=== PATIENT | male | born 1995 | race Caucasian/White ===

== ENCOUNTER 2016-11-05 10:40 | Emergency (ER) | payer BC, MEDICAID ==
[~2016-11-05] VITALS: Ht 180.3 cm; Wt 104.3 kg
[2016-11-05 10:50] VITALS: BP 137/71
[2016-11-05 11:32] LABS: BASOPHILS # (AUTO) 0.1 K/uL (0.00-0.22); BASOPHILS % (AUTO) 1.6 % (0.0-2.0); EOSINOPHILS # (AUTO) 0.2 K/uL (0-0.4); EOSINOPHILS % (AUTO) 2.2 % (0.0-4.0); HEMATOCRIT 49.4 % (36-52); HEMOGLOBIN 16.5 g/dL (12.0-18.0); LYMPHOCYTES # (AUTO) 1.6 K/uL (2.0-11.5); LYMPHOCYTES % (AUTO) 19.4 % (20.5-51.1); MEAN CORPUSCULAR HEMOGLOBIN 28 pg (27-31); MEAN CORPUSCULAR HGB CONC 33 g/dL (33-37); MEAN CORPUSCULAR VOLUME 84 fL (80-94); MONOCYTES # (AUTO) 1.4 K/uL (0.8-1.0); MONOCYTES % (AUTO) 16.8 % (1.7-9.3); NEUTROPHILS # (AUTO) 5.2 K/uL (1.8-7.7); PLATELET COUNT (AUTO) 218 K/uL (140-450); RED BLOOD CELL COUNT(AUTO) 5.87 MIL/uL (4.20-6.10); RED CELL DISTRIBUTION WIDTH 12.3 % (11.6-13.7); WHITE BLOOD COUNT (AUTO) 8.5 K/uL (4.8-10.8)
--- NOTE | 2016-11-05 14:22 | NUR ---
ER MD DR COSTA EVALUATING PT AT BEDSIDE
--- NOTE | 2016-11-05 14:22 | NUR ---
20/M BIB SISTER C/O L FOOT PAIN X 3 DAYS. DENIES TRAUMA OR ACCIDENT. SKIN IS PINK/WARM/DRY; AAOX4 WITH EVEN AND STEADY GAIT; LUNGS CLEAR BL; HR EVEN AND REGULAR; PT DENIES ANY FEVER, CP, SOB, OR COUGH AT THIS TIME; PATIENT STATES PAIN OF 9/10 AT THIS TIME; PATIENT POSITIONED FOR COMFORT; HOB ELEVATED; BEDRAILS UP X2; BED DOWN. ER MD MADE AWARE OF PT STATUS.
--- NOTE | 2016-11-05 14:22 | NUR ---
PATIENT TO ER BED 7
[2016-11-05 15:21] VITALS: BP 140/87
--- NOTE | 2016-11-05 15:21 | NUR ---
Patient discharged with v/s stable. Written and verbal after care instructions given and explained. Patient alert, oriented and verbalized understanding of instructions. Ambulatory with steady gait. All questions addressed prior to discharge. ID band removed. Patient advised to follow up with PMD. Rx of NAPROXYN given. Patient educated on indication of medication including possible reaction and side effects. Opportunity to ask questions provided and answered.
== END 2016-11-05 15:21 | disposition home or self-care (01) ==
LOC: MED 10:40
DX: M79.672 Pain in left foot (principal); R03.0 Elevated blood-pressure reading, without diagnosis of hypertension
CPT/HCPCS: 36415; 73630; 84550; 85025; 99285

== ENCOUNTER 2019-06-23 00:04 | Emergency (ER) | payer BC ==
[~2019-06-23] VITALS: Ht 182.9 cm; Wt 113.4 kg
[2019-06-23 00:10] VITALS: BP 130/60
--- NOTE | 2019-06-23 00:10 | NUR ---
PT AMBULATED TO BED
--- NOTE | 2019-06-23 00:21 | NUR ---
DR. NICOLAS AT BEDSIDE.
[2019-06-23] MEDS ORDERED: CEPHALEXIN 500 MG CAP PO ONE (00:25)
[2019-06-23] MEDS ORDERED: SULFAMETH/TRIMETH DS 800/160MG 1 TAB PO ONE (00:25)
[2019-06-23] MEDS ORDERED: KETOROLAC 30 MG/ML VIAL IM ONE (00:25)
--- NOTE | 2019-06-23 00:29 | NUR ---
23 Y/M PRESENTS TO ED FOR CELLULITIS TO L LEG X 2 DAY. DARKENED ERYTHEMA WITH SURROUNDING REDNESS WITH STREAKING TO THIGH, 10/10 PAIN. PT A&O X 4, RR EVEN AND UNLABORED, LUNGS CLEAR, S1 S2 PRESENT, DENIES DYSURIA, BOWEL SOUNDS ACTIVE. NKDA DENIES RX
--- NOTE | 2019-06-23 00:56 | NUR ---
Patient discharged with v/s stable. Written and verbal after care instructions given and explained. Patient alert, oriented and verbalized understanding of instructions. Ambulatory with steady gait. All questions addressed prior to discharge. ID band removed. Patient advised to follow up with PMD. Rx of KEFLEX AND BACTRIM given. Patient educated on indication of medication including possible reaction and side effects. Opportunity to ask questions provided and answered. PT GIVEN A NOTE OFF FROM WORK FROM 06/23- 06/24.
[2019-06-23 00:59] VITALS: BP 130/60
== END 2019-06-23 00:56 | disposition home or self-care (01) ==
LOC: MED 00:04
DX: L03.116 Cellulitis of left lower limb (principal)
CPT/HCPCS: 96372; 99283; J1885